=== PATIENT | male | born 2005 | race African-American/Black ===

== ENCOUNTER 2024-07-26 23:50 | Emergency (ER) | payer SELFPAY ==
[2024-07-27] MEDS ORDERED: Ibuprofen 200 MG TAB ONE (00:13)
== END 2024-07-27 01:05 | disposition home or self-care (01) ==
LOC: CSHERS 23:50
DX: J06.9 Acute upper respiratory infection, unspecified (principal); B97.89 Other viral agents as the cause of diseases classified elsewhere
CPT/HCPCS: 87081; 87428; 87430